=== PATIENT | female | born 1990 | race African-American/Black ===

== ENCOUNTER 2017-02-17 10:32 | Emergency (ER) | payer OTHER | END 2017-02-17 11:49 | disposition home or self-care (01) | LOC: ERS 10:32 | DX: T78.1XXA Other adverse food reactions, not elsewhere classified, initial encounter (principal); I10 Essential (primary) hypertension; F31.9 Bipolar disorder, unspecified; Z79.899 Other long term (current) drug therapy | CPT/HCPCS: 99282 ==

== ENCOUNTER 2017-04-15 11:26 | Emergency (ER) | payer OTHER ==
[2017-04-15 12:27] LABS: #Basophils 0.1 thou/uL (0.0-0.2); #Eosinphils 0.2 thou/uL (0.0-0.7); #Lymphocytes 1.9 thou/uL (1.20-3.40); #Monocytes 0.7 thou/uL (0.11-0.59); #Neutrophils 6.1 thou/uL (1.40-6.50); %Basophils 1.3 % (0.0-1.0); %Lymphocytes 21.2 % (21.0-51.0); %Monocytes 7.6 % (0.0-10.0); Hematocrit 36.8 % (36.0-47.0); Mean Platelet Volume 9.4 fL (7.4-10.4)
[2017-04-15 12:28] LABS: Bilirubin Negative (Negative); Blood, Urine Negative (Negative); Glucose, Urine (Dipstick) Negative (Negative); Ketone, Urine Negative (Negative); Nitrite Negative (Negative); Protein, Urine (Dipstick) Negative (Neg-Trace); Urobilinogen 0.2 mg/dL (0.2-1.0)
[2017-04-15 12:46] LABS: ALT (SGPT) 15 U/L (8-55); AST (SGOT) 18 U/L (5-34); Alkaline Phosphatase 99 U/L (40-150); Anion Gap 11 mmol/L (10-20); BUN (Urea Nitrogen) 15 mg/dL (7.0-18.7); Bilirubin, Total 0.4 mg/dL (0.2-1.2); Calc. Creatinine Clearance 0 mL/min (70-130); Calcium 9.3 mg/dL (7.8-10.44); Carbon Dioxide 22 mmol/L (22-29); Chloride 104 mmol/L (98-107); Estimated GFR-MDRD Greater than 90; Protein, Total 7.7 g/dL (6.0-8.3)
== END 2017-04-15 13:04 | disposition home or self-care (01) ==
LOC: ERS 11:26
DX: R19.7 Diarrhea, unspecified (principal); I10 Essential (primary) hypertension; F31.9 Bipolar disorder, unspecified; Z79.899 Other long term (current) drug therapy
CPT/HCPCS: 36415; 80053; 81003; 85025; 99284

== ENCOUNTER 2017-10-15 08:22 | Emergency (ER) | payer OTHER ==
[2017-10-15 08:43] LABS: Bilirubin Negative (Negative); Blood, Urine Trace (Negative); Clarity CLOUDY (Clear); Glucose, Urine (Dipstick) Negative (Negative); Leukocyte Large (Negative); Nitrite Negative (Negative); Protein, Urine (Dipstick) Negative (Neg-Trace); Specific Gravity, Urine 1.025 (1.002-1.036); Urobilinogen 0.2 mg/dL (0.2-1.0)
[2017-10-15 08:46] LABS: Bacteria/HPF 1+ HPF (None Seen); Hyaline Casts/LPF 4-6 HYALINE CAST LPF (0-3 Hyaline); Pathc Cast-AUWi Flag 0.14 (0-2.49); RBC/HPF 0-3 HPF (0-3)
[2017-10-15 08:47] LABS: Pregnancy Test - Urine (BHCG) Negative (Negative); Pregu Control Background? CLEAR/WHITE (CLR/WHITE); Pregu Control Bar Appear? YES (CONTROL BAR); Specific Gravity 1.025 (1.002-1.036); Yeast-AUWi Flag 26.1 (0-25.0)
[2017-10-15 09:01] LABS: Yeast-All Forms None Seen HPF (None Seen)
[2017-10-16 11:34] LABS: Chlamydia by PCR Not Detected (NotDetected); GC by PCR Not Detected (NotDetected)
== END 2017-10-15 11:42 | disposition home or self-care (01) ==
LOC: ERS 08:22
DX: N39.0 Urinary tract infection, site not specified (principal); B37.3 Candidiasis of vulva and vagina; D64.9 Anemia, unspecified; F31.9 Bipolar disorder, unspecified; I10 Essential (primary) hypertension
CPT/HCPCS: 81003; 81015; 81025; 87086; 87480; 87491; 87510; 87591; 87660; 99283

== ENCOUNTER 2017-12-17 05:47 | Emergency (ER) | payer OTHER | END 2017-12-17 06:40 | disposition home or self-care (01) | LOC: ERS 05:47 | DX: L02.811 Cutaneous abscess of head [any part, except face] (principal) | CPT/HCPCS: 99282 ==

== ENCOUNTER 2018-02-02 22:38 | Emergency (ER) | payer OTHER ==
--- NOTE | 2018-02-02 23:30 | CT ---
CT HEAD NONCONTRAST: 02/02/18 HISTORY: Head injury. FINDINGS: There is no evidence of acute intracranial hemorrhage or infarct. Ventricles appear normal in size sh ape and position. There is no mass effect or shift of midline structures. The visualized paranasal si nuses remain well aerated. IMPRESSION: No acute intracranial abnormalities are demonstrated on noncontrast CT head. POS: [facility]
[2018-02-03] MEDS ORDERED: Ibuprofen 800 MG TAB ONE (00:06)
== END 2018-02-03 00:08 | disposition home or self-care (01) ==
LOC: ERS 22:38
DX: S00.03XA Contusion of scalp, initial encounter (principal); D64.9 Anemia, unspecified; F31.9 Bipolar disorder, unspecified; F20.9 Schizophrenia, unspecified; Y04.0XXA Assault by unarmed brawl or fight, initial encounter
CPT/HCPCS: 70450

== ENCOUNTER 2018-12-21 20:20 | Emergency (ER) | payer OTHER | END 2018-12-21 20:42 | disposition home or self-care (01) | LOC: ERS 20:20 | DX: L02.424 Furuncle of left upper limb (principal); D64.9 Anemia, unspecified; I10 Essential (primary) hypertension; F31.9 Bipolar disorder, unspecified; F20.9 Schizophrenia, unspecified | CPT/HCPCS: 99283 ==

== ENCOUNTER 2019-01-06 16:33 | Emergency (ER) | payer OTHER ==
[2019-01-06] MEDS ORDERED: Ibuprofen 800 MG TAB ONE (17:11)
[2019-01-06] MEDS ORDERED: Acetaminophen 500 MG TAB ONE (17:11)
[2019-01-06] MEDS ORDERED: Dexamethasone 4 MG TAB ONE (17:11)
[2019-01-06] MEDS ORDERED: Dexamethasone 20 MG/5 ML VIAL ONE (17:14)
== END 2019-01-06 17:27 | disposition home or self-care (01) ==
LOC: SCSER 16:33
DX: J02.9 Acute pharyngitis, unspecified (principal); D64.9 Anemia, unspecified; F31.9 Bipolar disorder, unspecified; F20.9 Schizophrenia, unspecified
CPT/HCPCS: 99283; J1100; J8540

== ENCOUNTER 2019-05-12 07:32 | Emergency (ER) | payer OTHER | END 2019-05-12 08:26 | disposition home or self-care (01) | LOC: ERS 07:32 | DX: L02.415 Cutaneous abscess of right lower limb (principal); I10 Essential (primary) hypertension; D64.9 Anemia, unspecified; F31.9 Bipolar disorder, unspecified; F20.9 Schizophrenia, unspecified; Z79.899 Other long term (current) drug therapy | CPT/HCPCS: 10060; 87070; 87077; 87186; 87205 ==

== ENCOUNTER 2019-06-12 07:16 | Emergency (ER) | payer OTHER | END 2019-06-12 08:15 | disposition home or self-care (01) | LOC: ERS 07:16 | DX: J11.1 Influenza due to unidentified influenza virus with other respiratory manifestations (principal); I10 Essential (primary) hypertension; D64.9 Anemia, unspecified; F31.9 Bipolar disorder, unspecified; F20.9 Schizophrenia, unspecified | CPT/HCPCS: 99283 ==

== ENCOUNTER 2023-11-23 12:56 | Outpatient (CLI) | payer MEDICARE, MEDICAID | END 2023-11-23 12:57 | disposition home or self-care (01) | LOC: ULT 12:56 | PROVIDERS: ATTEND Student in an Organized Health Care Education/Training Program | DX: N93.9 Abnormal uterine and vaginal bleeding, unspecified (principal); N83.202 Unspecified ovarian cyst, left side; D25.9 Leiomyoma of uterus, unspecified | CPT/HCPCS: 76856 ==

== ENCOUNTER 2025-01-07 15:33 | Outpatient (CLI) | payer OTHER, MEDICAID | END 2025-01-07 15:34 | disposition home or self-care (01) | LOC: DTY/OP 15:33 | PROVIDERS: ATTEND Family Medicine | DX: E66.813 Obesity, class 3 (principal); I10 Essential (primary) hypertension; Z68.42 Body mass index [BMI] 45.0-49.9, adult | CPT/HCPCS: 97802 ==